=== PATIENT | female | born 1950 | race Caucasian/White ===

== ENCOUNTER 2017-07-02 15:39 | Emergency (ER) | payer OTHER ==
[~2017-07-02] VITALS: Ht 167.6 cm; Wt 83.3 kg
[~2017-07-02 15:39] MED LIST: ASPIRIN81 M1 PO; CALCIUM CITRAT1 EAC2 PO; DITROPAN XL15 MG PO; PRAVACHOL80 MG PO; PROTONIX40 MG PO; TRAVATAN 0.004%5 ML BOTH EYES
[2017-07-02] MEDS ORDERED: TRAMADOL HCL50 MG PO (16:06)
[2017-07-02] MEDS ORDERED: FLEXERIL10 MG PO (16:06)
[2017-07-02] MEDS ORDERED: NAPROSYN500 MG PO (16:06)
[2017-07-02 16:35] VITALS: BP 153/75
== END 2017-07-02 17:00 | disposition home or self-care (01) ==
LOC: EME 15:39
DX: S39.012A Strain of muscle, fascia and tendon of lower back, initial encounter (principal); X50.0XXA Overexertion from strenuous movement or load, initial encounter; Y92.000 Kitchen of unspecified non-institutional (private) residence as the place of occurrence of the external cause; K21.9 Gastro-esophageal reflux disease without esophagitis; E89.0 Postprocedural hypothyroidism; Z88.0 Allergy status to penicillin; Z79.82 Long term (current) use of aspirin
CPT/HCPCS: 99281; 99283